=== PATIENT | male | born 2000 | race Caucasian/White ===

== ENCOUNTER 2020-02-19 00:57 | Emergency (ER) | payer OTHER ==
[~2020-02-19] VITALS: Ht 152.4 cm; Wt 59.0 kg
[2020-02-19] MEDS ORDERED: ZITHROMAX500 MG PO (03:21)
[2020-02-19] MEDS ORDERED: ORASEP SPRAY30 ML MM (03:21)
== END 2020-02-19 03:42 | disposition home or self-care (01) ==
LOC: ER 00:57
DX: J06.9 Acute upper respiratory infection, unspecified (principal); B27.80 Other infectious mononucleosis without complication